=== PATIENT | female | born 1955 | race Caucasian/White ===

== ENCOUNTER 2018-10-24 18:56 | Emergency (ER) | payer OTHER ==
--- NOTE | 2018-10-24 19:03 | PDOC ---
Rapid Medical Evaluation Time Seen by Provider: 10/24/18 19:01 Medical Evaluation: Allergies Allergy/AdvReac Type Severity Reaction Status Date / Time No Known Allergies Allergy Verified 10/24/18 19:01 10/24/18 19:01 I have performed a brief in-person evaluation of this patient. The patient presents with a chief complaint of:L hand injury s/p mechanical fall today. No head injury. No hip/back/neck pain/ Able to ambulate Pertinent physical exam findings:abrasions to base of L 5th digit w/ pain to digit I have ordered the following:XR, thinks she is UTD w/ her tetanus The patient will proceed to the ED for further evaluation. Discharge Disposition - Diagnosis Hand injury Qualifiers: Encounter type: initial encounter Laterality: left Qualified Code(s): S69.92XA - Unspecified injury of left wrist, hand and finger(s), initial encounter - Referrals - Patient Instructions - Post Discharge Activity
[2018-10-24 19:04] VITALS: BP 171/94; PULSE 99; TEMP 97.5; BMI 35.1
--- NOTE | 2018-10-24 20:00 | PDOC ---
History of Present Illness - General Chief Complaint: Injury Stated Complaint: FALL Time Seen by Provider: 10/24/18 19:01 History Source: Patient - History of Present Illness Initial Comments: 10/24/18 20:36 Complaint: Hand injury Patient is a 63-year-old female with a history of diabetes, takes pills who states she tripped today, falling and injuring her left hand. Denies any head injury not on any kind of anticoagulation or antiplatelet therapy. Patient denies LOC, getting dizzy or any other complaints. Patient is with her son GENERAL/CONSTITUTIONAL: No fever, weakness. dizziness HEAD, EYES, EARS, NOSE AND THROAT: No change in vision. No ear pain or discharge. No sore throat. CARDIOVASCULAR: No chest pain RESPIRATORY: No shortness of breath or cough GASTROINTESTINAL: No pain, nausea, vomiting, diarrhea or constipation GENITOURINARY: No dysuria MUSCULOSKELETAL: No neck or back pain SKIN: No rash NEUROLOGIC: No headache, vertigo, loss of consciousness, or loss of sensation. GENERAL: The patient is awake, alert, and fully oriented, in no acute distress. HEAD: Normal with no signs of trauma. EYES: Pupils equal, round and reactive to light, sclera anicteric, conjunctiva clear. ENT: pharynx: no erythema, no exudate, uvula midline NECK: supple CHEST: clear, nontender, rr ABD: soft, nontender BACK: no tenderness or signs of injury EXTREMITIES: Right hand with mild tenderness to the fourth and fifth digits extending into the metacarpals, able to flex and extend, no signs of tendon injury or dislocation, neurovascular intact, small abrasion to the distal palm proximate to the fifth digit. No wrist swelling, tenderness, full range of motion to the wrist, rest of extremities, normal range of motion, no edema. NEUROLOGICAL: Normal speech, normal gait. SKIN: Warm, Dry Past History - Past Medical History Allergies/Adverse Reactions: Allergies Allergy/AdvReac Type Severity Reaction Status Date / Time No Known Allergies Allergy Verified 10/24/18 19:01 COPD: No Diabetes: Yes HTN: Yes Hypercholesterolemia: Yes - Suicide/Smoking/Psychosocial Hx Smoking History: Never smoked Hx Alcohol Use: No Drug/Substance Use Hx: No *Physical Exam - Vital Signs Last Vital Signs Temp Pulse Resp BP Pulse Ox 97.5 F L 99 H 18 171/94 H 100 10/24/18 19:01 10/24/18 19:01 10/24/18 19:01 10/24/18 19:01 10/24/18 19:01 Procedures - Splinting Splint Location: Left: Hand Pre-Proc Neuro Vasc Exam: normal Hand-Made Type: orthoglass Splint Type: Yes: Ulnar Post-Proc Neuro Vasc Exam: normal Toi Bandage: yes, 3" Sling: No Medical Decision Making - Medical Decision Making 10/24/18 20:38 63-year-old female history of NIDDM, who tripped and fell today injuring her left hand. Patient does not know when last tetanus was patient will get tetanus update, Tylenol as requested, an x-ray. xray does not show acute issue, splint for comfort after cleaning wound, patient will get orthopedic follow-up. Discussed issues, findings, results, applicable medications and treatments and follow-up. All these were understood and all questions were answered *DC/Admit/Observation/Transfer Diagnosis at time of Disposition: Hand injury Qualifiers: Encounter type: initial encounter Laterality: left Qualified Code(s): S69.92XA - Unspecified injury of left wrist, hand and finger(s), initial encounter - Discharge Dispostion Disposition: HOME Condition at time of disposition: Stable - Referrals Referrals: ON STAFF,NOT [Primary Care Provider] - Cheng Hollins MD [Staff Physician] - - Patient Instructions Additional Instructions: Elevate, wear splint You can apply ice for 20 minutes every 2 hours for the next 2 days Tylenol 650 mg every 4 hours for pain. Call the orthopedist Saturday for an appointment for further evaluation - Post Discharge Activity
[2018-10-24] MEDS ORDERED: ACETAMINOPHEN 325 MG TABLET (FP) ONE (20:45)
[2018-10-24] MEDS ORDERED: DIPHTH,PERTUSS(ACELL),TET 0.5 ML DISP.SYRIN IM ONE (20:46)
[2018-10-24] MEDS ORDERED: ACETAMINOPHEN 325 MG TABLET (FP) PO ONE (20:51)
[2018-10-24] MEDS ORDERED: DIPHTH,PERTUSS(ACELL),TET VAC 0.5 ML VIAL IM ONE (20:52)
== END 2018-10-24 20:59 | disposition home or self-care (01) ==
LOC: JERFT 18:56
PROC: 2W3DX1Z Immobilization of Left Lower Arm using Splint (ICD-10-PCS; principal; 2018-10-24)
PROC: 3E0234Z Introduction of Serum, Toxoid and Vaccine into Muscle, Percutaneous Approach (ICD-10-PCS; 2018-10-24)
DX: S60.512A Abrasion of left hand, initial encounter (principal); W01.0XXA Fall on same level from slipping, tripping and stumbling without subsequent striking against object, initial encounter; Y93.89 Activity, other specified; Y92.89 Other specified places as the place of occurrence of the external cause; Y99.8 Other external cause status; I10 Essential (primary) hypertension; E78.00 Pure hypercholesterolemia, unspecified; E11.9 Type 2 diabetes mellitus without complications; Z79.84 Long term (current) use of oral hypoglycemic drugs
CPT/HCPCS: 29125; 73130-TC-LT-FY; 90471; 99281-25